=== PATIENT | male | born 1960 | race Caucasian/White ===

== ENCOUNTER 2019-08-02 16:21 | Emergency (ER) | payer OTHER ==
[~2019-08-02] VITALS: Ht 182.9 cm; Wt 83.5 kg
[2019-08-02 16:25] VITALS: BP 138/85
--- NOTE | 2019-08-02 16:44 | NUR ---
PT A&OX4, RESP EVEN & UNLABORED, OCCASIONAL NON-PRODUCTIVE COUGH NOTED, SPEECH CLEAR. PT C/O ITCHY LESIONS TO LT WRIST, RT SHOULDER & AXILA, RT TORSO. STATES "I JUST WANT TO KNOW WHAT'S GOING ON". STATES HE LIVES IN A JAIL. ADMITS ETOH INTAKE - "A COUPLE OF BEERS TODAY"
[2019-08-02] MEDS ORDERED: BICILLIN-LA 2,400,000 UNITS/4 ML IM ONE (17:00)
--- NOTE | 2019-08-02 17:56 | NUR ---
BICILLIN GIVEN PER EMAR.
== END 2019-08-02 18:22 | disposition home or self-care (01) ==
LOC: ED 18:05
DX: J20.9 Acute bronchitis, unspecified (principal); Z87.891 Personal history of nicotine dependence
CPT/HCPCS: 36415; 71045; 86592; 96372; 99284; J0561